=== PATIENT | female | born 1940 | race Two or more races ===

== ENCOUNTER 2020-07-01 10:15 | Inpatient (IN) | payer OTHER ==
[~2020-07-01] VITALS: Ht 162.6 cm; Wt 54.4 kg
[2020-07-01] MEDS ORDERED: ATORVASTATIN CA20 MG PO (13:37)
[2020-07-01] MEDS ORDERED: NORVASC5 MG PO (13:38)
[2020-07-11] MEDS ORDERED: XARELTO10 MG PO (07:51)
[2020-07-11] MEDS ORDERED: OXYC1TAB9 PO (07:51)
[2020-07-11] MEDS ORDERED: Septra Ds Tablet PO (07:51)
[2020-07-11] MEDS ORDERED: FAMOTIDINE40 MG PO (07:51)
[2020-07-11] MEDS ORDERED: INTEGRA PLUS C1 EACH PO (07:51)
== END 2020-07-11 14:19 | DRG 470 ==
LOC: O/R 07-08 06:00 → SURG 07-08 06:00 → SURH 07-08 10:15 → SURG 07-08 14:23
PROVIDERS: ADMIT Orthopaedic Surgery Sports Medicine; ATTEND Orthopaedic Surgery Sports Medicine
PROC: 0SRC0J9 Replacement of Right Knee Joint with Synthetic Substitute, Cemented, Open Approach (ICD-10-PCS; principal; 2020-07-08 10:45)
DX: M17.11 Unilateral primary osteoarthritis, right knee (principal); I10 Essential (primary) hypertension; E78.49 Other hyperlipidemia